=== PATIENT | female | born 1960 | race Caucasian/White ===

== ENCOUNTER 2018-06-28 11:43 | Emergency (ER) | payer OTHER ==
[~2018-06-28] VITALS: Ht 167.6 cm; Wt 56.8 kg
[2018-06-28] MEDS ORDERED: KETOROLAC TROMETHAMINE 30 MG/ML VIAL IM ONE (12:45)
[2018-06-28] MEDS ORDERED: KETOROLAC TROMETHAMINE 30 MG/ML VIAL IVP ONE (12:45)
[2018-06-28 13:53] VITALS: BP 128/94
== END 2018-06-28 14:17 | disposition home or self-care (01) ==
LOC: EMS 11:44
DX: M71.21 Synovial cyst of popliteal space [Baker], right knee (principal); I51.9 Heart disease, unspecified; F17.210 Nicotine dependence, cigarettes, uncomplicated
CPT/HCPCS: 36415; 85379; 93971; 96374; 99285; 99406; J1885